=== PATIENT | male | born 1965 | race Caucasian/White ===

== ENCOUNTER 2018-03-24 17:08 | Emergency (ER) | payer MEDICAID ==
[2018-03-24] MEDS ORDERED: LORazepam 0.5 MG Tab PO ONE ×2 (17:34→17:56)
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
== END 2018-03-24 18:12 | disposition home or self-care (01) ==
LOC: MW.ED 17:08
DX: F41.9 Anxiety disorder, unspecified (principal); Z76.0 Encounter for issue of repeat prescription
CPT/HCPCS: 99282; A9270